=== PATIENT | male | born 1990 | race African-American/Black ===

== ENCOUNTER 2018-12-16 04:48 | Emergency (ER) | payer OTHER ==
[2018-12-16 05:32] VITALS: BP 116/55; PULSE 78; TEMP 98.4; BMI 67.0
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
[2018-12-16] MEDS ORDERED: METHOCARBAMOL 500 MG TABLET PO ONE (06:38)
[2018-12-16] MEDS ORDERED: IBUPROFEN 600 MG TABLET (FP) PO ONE ×3 (06:38→06:43)
[2018-12-16] MEDS ORDERED: METHOCARBAMOL 500 MG TABLET ONE (06:41)
== END 2018-12-16 06:51 | disposition home or self-care (01) ==
LOC: JER 04:48
DX: S13.4XXA Sprain of ligaments of cervical spine, initial encounter (principal); V53.6XXA Passenger in pick-up truck or van injured in collision with car, pick-up truck or van in traffic accident, initial encounter; Y92.414 Local residential or business street as the place of occurrence of the external cause; Y93.89 Activity, other specified; Y99.8 Other external cause status
CPT/HCPCS: 99281-25

== ENCOUNTER 2019-06-23 14:47 | Emergency (ER) | payer OTHER ==
[2019-06-23 15:09] VITALS: BMI 30.7
[2019-06-23] MEDS ORDERED: ONDANSETRON 4 MG/2 ML VIAL IVPUSH ONE ×2 (15:28→16:54)
[2019-06-23] MEDS ORDERED: SODIUM CHLORIDE 0.9% 500 ML INFUS.BAG IV ONE (15:28)
[2019-06-23] MEDS ORDERED: FAMOTIDINE 20 MG/50 ML IVPB 20 MG/50 ML MG IVPB ONE ×2 (15:28→15:37)
[2019-06-23] MEDS ORDERED: ONDANSETRON 4 MG/2 ML VIAL ONE ×2 (15:37→16:57)
[2019-06-23] MEDS ORDERED: KETOROLAC TROMETHAMINE 30 MG/1 ML VIAL IVPUSH ONE (15:40)
[2019-06-23] MEDS ORDERED: KETOROLAC TROMETHAMINE 30 MG/1 ML VIAL ONE (15:45)
[2019-06-23 15:59] LABS: BASO % 0.4 % (0-2.0); EOS % 0.4 % (0-4.5); HEMATOCRIT 51.4 % (35.4-49); HEMOGLOBIN 17.7 GM/dL (11.7-16.9); MCH 30.4 pg (25.7-33.7); MCHC 34.4 g/dl (32.0-35.9); MEAN CELL VOLUME 88.3 fl (80-96); MEAN PLT VOLUME 7.4 fl (7.5-11.1); MONO % 14.1 % (3.8-10.2); NEUT % 68.1 % (42.8-82.8); PLATELET COUNT 295 K/MM3 (134-434); RBC 5.82 M/mm3 (4.00-5.60); RDW 14.1 % (11.9-15.9); WHITE BLOOD COUNT 6.5 K/mm3 (4.0-10.0)
[2019-06-23 16:14] LABS: BILIRUBIN,TOTAL 0.3 mg/dL (0.2-1); BLOOD UREA NITROGEN 16.9 mg/dL (7-18); CREATININE 1.1 mg/dL (0.55-1.3); POTASSIUM 3.9 mmol/L (3.5-5.1); TOT PROT 8.9 g/dl (6.4-8.2)
[2019-06-23] MEDS ORDERED: METOCLOPRAMIDE HCL INJECTION 10 MG/2 ML VIAL IVPUSH ONE (17:40)
[2019-06-23] MEDS ORDERED: METOCLOPRAMIDE HCL INJECTION 10 MG/2 ML VIAL ONE (17:46)
[2019-06-23 18:42] VITALS: BP 139/71; PULSE 64; TEMP 98.5
[2019-06-23 19:22] LABS: URINE APPEARANCE CLEAR; URINE BILIRUBIN SMALL (NEGATIVE); URINE COLOR DK YELLOW; URINE GLUCOSE (UA) NEGATIVE (NEGATIVE); URINE KETONE 80 (NEGATIVE); URINE PROTEIN 100 (NEGATIVE)
[2019-06-23 19:23] LABS: URINE LEUK ESTERASE NEGATIVE (NEGATIVE); URINE NITRITE NEGATIVE (NEGATIVE)
== END 2019-06-23 19:52 | disposition home or self-care (01) ==
LOC: EDBD → JER 14:47
PROC: 3E033GC Introduction of Other Therapeutic Substance into Peripheral Vein, Percutaneous Approach (ICD-10-PCS; principal; 2019-06-23)
PROC: 3E0333Z Introduction of Anti-inflammatory into Peripheral Vein, Percutaneous Approach (ICD-10-PCS; 2019-06-23)
PROC: 3E033GC Introduction of Other Therapeutic Substance into Peripheral Vein, Percutaneous Approach (ICD-10-PCS; 2019-06-23)
PROC: 3E033GC Introduction of Other Therapeutic Substance into Peripheral Vein, Percutaneous Approach (ICD-10-PCS; 2019-06-23)
DX: K52.9 Noninfective gastroenteritis and colitis, unspecified (principal)
CPT/HCPCS: 36415; 80053; 81003; 85025; 99284-25

== ENCOUNTER 2020-07-28 11:38 | Emergency (ER) | payer OTHER ==
[2020-07-28 12:14] VITALS: BP 123/61; PULSE 97; TEMP 97.9; BMI 30.8
[2020-07-28] MEDS ORDERED: ONDANSETRON 4 MG/2 ML VIAL IVPUSH ONE (12:36)
[2020-07-28] MEDS ORDERED: SODIUM CHLORIDE 1,000 ML IV STA (12:36)
[2020-07-28] MEDS ORDERED: ONDANSETRON 4 MG/2 ML VIAL ONE (14:08)
[2020-07-28 14:41] LABS: BASO % 0.5 % (0-2.0); HEMATOCRIT 54.1 % (35.4-49); HEMOGLOBIN 18.5 GM/dL (11.7-16.9); LYMPH % 16.6 % (8-40); MCHC 34.2 g/dl (32.0-35.9); MEAN CELL VOLUME 87.8 fl (80-96); MEAN PLT VOLUME 7.3 fl (7.5-11.1); MONO % 14.7 % (3.8-10.2); NEUT % 68.2 % (42.8-82.8); PLATELET COUNT 295 K/MM3 (134-434); RBC 6.16 M/mm3 (4.00-5.60); WHITE BLOOD COUNT 7.7 K/mm3 (4.0-10.0)
[2020-07-28 15:00] LABS: CALCIUM 10.1 mg/dL (8.5-10.1)
[2020-07-28 15:01] LABS: ALBUMIN 4.3 g/dl (3.4-5.0); BLOOD UREA NITROGEN 19.4 mg/dL (7-18)
[2020-07-28 15:04] LABS: CREATININE 1.4 mg/dL (0.55-1.3)
[2020-07-28 15:06] LABS: BILIRUBIN,TOTAL 0.5 mg/dL (0.2-1); TOT PROT 9.4 g/dl (6.4-8.2)
== END 2020-07-28 17:48 | disposition home or self-care (01) ==
LOC: JER 11:38
PROC: 3E033GC Introduction of Other Therapeutic Substance into Peripheral Vein, Percutaneous Approach (ICD-10-PCS; principal; 2020-07-28)
PROC: 3E0337Z Introduction of Electrolytic and Water Balance Substance into Peripheral Vein, Percutaneous Approach (ICD-10-PCS; 2020-07-28)
DX: U07.1 COVID-19 (principal); Z11.52 Encounter for screening for COVID-19
CPT/HCPCS: 36415; 80053; 83690; 85025; 99284-25; C9803; U0003; U0005

== ENCOUNTER 2020-10-17 15:39 | Emergency (ER) | payer OTHER ==
[2020-10-17 15:52] VITALS: BMI 27.1
[2020-10-17 17:04] VITALS: BP 130/79; PULSE 112; TEMP 98.1
== END 2020-10-17 16:50 | disposition short-term general hospital (02) ==
LOC: JER 15:39
DX: S31.603A Unspecified open wound of abdominal wall, right lower quadrant with penetration into peritoneal cavity, initial encounter (principal)
CPT/HCPCS: 99285-25

== ENCOUNTER 2020-12-09 21:35 | Emergency (ER) | payer OTHER ==
[2020-12-09 22:19] VITALS: BP 105/70; PULSE 19; TEMP 98.3; BMI 31.5
[2020-12-10 00:26] LABS: BASO % 1.1 % (0-2.0); EOS % 2.4 % (0-4.5); HEMATOCRIT 44.4 % (35.4-49); LYMPH % 30.7 % (8-40); MCH 29.3 pg (25.7-33.7); MCHC 33.7 g/dl (32.0-35.9); MEAN PLT VOLUME 6.8 fl (7.5-11.1); MONO % 8.5 % (3.8-10.2); NEUT % 57.3 % (42.8-82.8); PLATELET COUNT 311 10^3/uL (134-434); RBC 5.11 M/mm3 (4.00-5.60); RDW 13.9 % (11.9-15.9); WHITE BLOOD COUNT 8.8 K/mm3 (4.0-10.0)
[2020-12-10 00:46] LABS: BLOOD UREA NITROGEN 14.4 mg/dL (7-18)
[2020-12-10 00:49] LABS: CREATININE 1.2 mg/dL (0.55-1.3)
[2020-12-10 00:51] LABS: BILIRUBIN,TOTAL 0.4 mg/dL (0.2-1)
[2020-12-10] MEDS ORDERED: KETOROLAC TROMETHAMINE 30 MG/1 ML VIAL IVPUSH ONE (01:42)
[2020-12-10] MEDS ORDERED: KETOROLAC TROMETHAMINE 30 MG/1 ML VIAL ONE (01:48)
== END 2020-12-10 02:20 | disposition home or self-care (01) ==
LOC: JER 21:35
PROC: 3E033GC Introduction of Other Therapeutic Substance into Peripheral Vein, Percutaneous Approach (ICD-10-PCS; principal; 2020-12-09)
DX: R10.31 Right lower quadrant pain (principal); V49.9XXA Car occupant (driver) (passenger) injured in unspecified traffic accident, initial encounter
CPT/HCPCS: 36415; 74177-TC; 80053; 85025; 99285-25

== ENCOUNTER 2021-04-05 19:55 | Emergency (ER) | payer OTHER ==
[2021-04-05 20:00] VITALS: BP 140/94; PULSE 78; TEMP 98; BMI 31.5
[2021-04-05] MEDS ORDERED: KETOROLAC TROMETHAMINE 15 MG/ML VIAL IM ONE (21:33)
[2021-04-05] MEDS ORDERED: ACETAMINOPHEN 500 MG TABLET (FP) PO ONE (21:33)
[2021-04-05] MEDS ORDERED: ACETAMINOPHEN 1000 MG/100 ML VIAL IVPB ONE (21:37)
[2021-04-05] MEDS ORDERED: KETOROLAC TROMETHAMINE 15 MG/ML VIAL IVPUSH ONE (21:37)
[2021-04-05] MEDS ORDERED: KETOROLAC TROMETHAMINE 30 MG/1 ML VIAL ONE (21:54)
[2021-04-05] MEDS ORDERED: ACETAMINOPHEN INJECTION 100 ML IVPB ONE (21:54)
[2021-04-05] MEDS ORDERED: morphine CARPU-JECT 2 MG/1 ML DISP.SYRIN IVPUSH ONE (22:01)
[2021-04-05] MEDS ORDERED: morphine SULFATE 4 MG/ML VIAL ONE (22:42)
== END 2021-04-05 23:56 | disposition home or self-care (01) ==
LOC: JER 19:55
PROC: 3E033GC Introduction of Other Therapeutic Substance into Peripheral Vein, Percutaneous Approach (ICD-10-PCS; principal; 2021-04-05)
DX: S49.92XA Unspecified injury of left shoulder and upper arm, initial encounter (principal); V49.40XA Driver injured in collision with unspecified motor vehicles in traffic accident, initial encounter
CPT/HCPCS: 70450-TC; 71046-TC-FY; 72125-TC; 73030-TC-LT-FY; 99285-25; J0131

== ENCOUNTER 2021-04-16 08:42 | Emergency (ER) | payer OTHER ==
[2021-04-16 08:46] VITALS: BP 119/88; PULSE 90; TEMP 97.9; BMI 32.3
[2021-04-16] MEDS ORDERED: ONDANSETRON 4 MG/2 ML VIAL ONE (09:30)
[2021-04-16] MEDS ORDERED: SODIUM CHLORIDE 1,000 ML IV STA (09:32)
[2021-04-16] MEDS ORDERED: ONDANSETRON 4 MG/2 ML VIAL IVPUSH ONE (09:32)
== END 2021-04-16 14:19 | disposition home or self-care (01) ==
LOC: JER 08:42 → JCOVINFU 08:42 → JER 14:19
PROC: 3E033GC Introduction of Other Therapeutic Substance into Peripheral Vein, Percutaneous Approach (ICD-10-PCS; principal; 2021-04-16)
DX: R11.2 Nausea with vomiting, unspecified (principal)
CPT/HCPCS: 99284-25; C9803; U0003; U0005

== ENCOUNTER 2021-04-23 00:34 | Emergency (ER) | payer OTHER ==
[2021-04-23 02:31] VITALS: BP 134/78; PULSE 95; TEMP 98.1; BMI 31.4
[2021-04-23 05:56] LABS: BASO % 1.8 % (0-2.0); EOS % 4.2 % (0-4.5); HEMATOCRIT 44.6 % (35.4-49); HEMOGLOBIN 14.4 GM/dL (11.7-16.9); LYMPH % 20.3 % (8-40); MCH 28.4 pg (25.7-33.7); MCHC 32.3 g/dl (32.0-35.9); MEAN PLT VOLUME 6.4 fl (7.5-11.1); MONO % 8.5 % (3.8-10.2); NEUT % 65.2 % (42.8-82.8); PLATELET COUNT 445 10^3/uL (134-434); RBC 5.07 M/mm3 (4.00-5.60); RDW 13.8 % (11.9-15.9); WHITE BLOOD COUNT 8.7 K/mm3 (4.0-10.0)
[2021-04-23 06:13] LABS: CALCIUM 9.2 mg/dL (8.5-10.1)
[2021-04-23 06:14] LABS: ALBUMIN 3.6 g/dl (3.4-5.0); BLOOD UREA NITROGEN 14.3 mg/dL (7-18)
[2021-04-23 06:17] LABS: CREATININE 1.2 mg/dL (0.55-1.3)
[2021-04-23 06:18] LABS: BILIRUBIN,TOTAL 0.2 mg/dL (0.2-1)
[2021-04-23 06:19] LABS: TOT PROT 7.3 g/dl (6.4-8.2)
== END 2021-04-23 09:09 | disposition home or self-care (01) ==
LOC: JER 00:34
DX: L03.211 Cellulitis of face (principal)
CPT/HCPCS: 36415; 70487-TC; 70491-TC; 80053; 85025; 99284-25; Q9967

== ENCOUNTER 2022-03-21 09:05 | Emergency (ER) | payer OTHER ==
[2022-03-21 09:09] VITALS: BMI 26.5
[2022-03-21] MEDS ORDERED: LACTATED RINGERS SOLUTION 1,000 ML/1,000 ML INFUS.BAG IV ONE (09:58)
[2022-03-21] MEDS ORDERED: ACETAMINOPHEN 1000 MG/100 ML BAG IVPB ONE (09:59)
[2022-03-21] MEDS ORDERED: ONDANSETRON 4 MG/2 ML VIAL IVPUSH ONE (09:59)
[2022-03-21] MEDS ORDERED: ACETAMINOPHEN INJECTION 100 ML IVPB ONE (10:20)
[2022-03-21] MEDS ORDERED: ONDANSETRON 4 MG/2 ML VIAL ONE (10:20)
[2022-03-21 10:42] LABS: BASO % 0.9 % (0-2.0); EOS % 2.8 % (0-4.5); HEMATOCRIT 52.2 % (35.4-49); HEMOGLOBIN 17.6 GM/dL (11.7-16.9); LYMPH % 17.5 % (8-40); MCH 29.6 pg (25.7-33.7); MCHC 33.8 g/dl (32.0-35.9); MEAN CELL VOLUME 87.4 fl (80-96); MEAN PLT VOLUME 6.8 fl (7.5-11.1); MONO % 9.8 % (3.8-10.2); PLATELET COUNT 394 10^3/uL (134-434); RBC 5.97 M/mm3 (4.00-5.60); RDW 13.7 % (11.9-15.9); WHITE BLOOD COUNT 9.6 K/mm3 (4.0-10.0)
[2022-03-21 11:45] LABS: EPI CELLS 26 /uL (0-25.1); HYALINE CASTS 5 /uL (0-3.1); URINE APPEARANCE CLEAR; URINE BACTERIA 6 /uL (0-1359); URINE BILIRUBIN NEGATIVE (NEGATIVE); URINE COLOR DK YELLOW; URINE GLUCOSE (UA) NEGATIVE (NEGATIVE); URINE KETONE TRACE (NEGATIVE); URINE LEUK ESTERASE NEGATIVE (NEGATIVE); URINE NITRITE NEGATIVE (NEGATIVE); URINE PROTEIN 2+ (NEGATIVE); URINE WBC 40 /uL (0-25.8)
[2022-03-21 12:04] LABS: URINE RBC 57.1 /uL (0-23.9)
[2022-03-21 12:23] LABS: CREATININE 1.3 mg/dL (0.55-1.3)
[2022-03-21 12:25] LABS: BILIRUBIN,TOTAL 0.9 mg/dL (0.2-1); TOT PROT 9.2 g/dl (6.4-8.2)
[2022-03-21 12:41] VITALS: BP 120/79; PULSE 80; RESP 17; TEMP 98.8
== END 2022-03-21 12:47 | disposition home or self-care (01) ==
LOC: JER 09:05
PROC: 3E0333Z Introduction of Anti-inflammatory into Peripheral Vein, Percutaneous Approach (ICD-10-PCS; principal; 2022-03-21)
PROC: 3E033GC Introduction of Other Therapeutic Substance into Peripheral Vein, Percutaneous Approach (ICD-10-PCS; 2022-03-21)
PROC: 3E0337Z Introduction of Electrolytic and Water Balance Substance into Peripheral Vein, Percutaneous Approach (ICD-10-PCS; 2022-03-21)
DX: J09.X2 Influenza due to identified novel influenza A virus with other respiratory manifestations (principal); R05.1 Acute cough; R11.2 Nausea with vomiting, unspecified; R19.7 Diarrhea, unspecified
CPT/HCPCS: 0241U-QW; 36415; 80053; 81003; 83690; 85025; 87086; 99284-25

== ENCOUNTER 2022-04-05 09:49 | Emergency (ER) | payer OTHER ==
[2022-04-05 10:24] VITALS: BP 102/56; PULSE 85; RESP 18; TEMP 97.6; BMI 33.0
== END 2022-04-05 11:48 | disposition home or self-care (01) ==
LOC: JERFT 09:49
DX: L72.0 Epidermal cyst (principal); M79.671 Pain in right foot
CPT/HCPCS: 73630-TC-RT-FY; 99283-25

== ENCOUNTER 2022-04-15 03:47 | Emergency (ER) | payer OTHER ==
[2022-04-15 04:43] VITALS: BP 107/73; PULSE 71; RESP 18; TEMP 98.3; BMI 33.0
[2022-04-15] MEDS ORDERED: SODIUM CHLORIDE 1,000 ML IV STA (06:13)
[2022-04-15] MEDS ORDERED: LACTATED RINGERS SOLUTION 1000 ML INFUS.BAG IV ONE (07:40)
[2022-04-15] MEDS ORDERED: FAMOTIDINE 20 MG/50 ML IVPB 20 MG/50 ML MG IVPB ONE ×2 (07:40→07:57)
[2022-04-15] MEDS ORDERED: MAG HYDROX/AL HYDROX/SIMETH 30 ML UNIT-DOSE CUP PO ONE (07:40)
[2022-04-15] MEDS ORDERED: ACETAMINOPHEN 1000 MG/100 ML BAG IVPB ONE (07:40)
[2022-04-15] MEDS ORDERED: ONDANSETRON 4 MG/2 ML VIAL IVPUSH ONE (07:40)
[2022-04-15] MEDS ORDERED: ACETAMINOPHEN INJECTION 100 ML IVPB ONE (07:56)
[2022-04-15] MEDS ORDERED: ONDANSETRON 4 MG/2 ML VIAL ONE (07:57)
[2022-04-15] MEDS ORDERED: MAG HYDROX/AL HYDROX/SIMETH 30 ML UNIT-DOSE CUP ONE (08:01)
[2022-04-15 08:59] LABS: BASO % 1.5 % (0-2.0); EOS % 3.3 % (0-4.5); HEMATOCRIT 49.9 % (35.4-49); HEMOGLOBIN 16.3 GM/dL (11.7-16.9); LYMPH % 17.7 % (8-40); MCH 29.1 pg (25.7-33.7); MCHC 32.7 g/dl (32.0-35.9); MEAN CELL VOLUME 88.9 fl (80-96); MEAN PLT VOLUME 7.1 fl (7.5-11.1); MONO % 9.9 % (3.8-10.2); NEUT % 67.6 % (42.8-82.8); PLATELET COUNT 381 10^3/uL (134-434); RBC 5.61 M/mm3 (4.00-5.60); RDW 14.7 % (11.9-15.9); WHITE BLOOD COUNT 9.1 K/mm3 (4.0-10.0)
[2022-04-15 09:25] LABS: ALBUMIN 3.7 g/dl (3.4-5.0); BLOOD UREA NITROGEN 15.7 mg/dL (7-18); CALCIUM 9.6 mg/dL (8.5-10.1)
[2022-04-15 09:29] LABS: BILIRUBIN,TOTAL 0.4 mg/dL (0.2-1); TOT PROT 8.2 g/dl (6.4-8.2)
== END 2022-04-15 10:16 | disposition home or self-care (01) ==
LOC: JER 03:47
PROC: 3E033GC Introduction of Other Therapeutic Substance into Peripheral Vein, Percutaneous Approach (ICD-10-PCS; principal; 2022-04-15)
DX: R11.2 Nausea with vomiting, unspecified (principal); R19.7 Diarrhea, unspecified
CPT/HCPCS: 0241U-QW; 36415; 80053; 83690; 85025; 93005; 93010; 99284-25

== ENCOUNTER 2022-12-05 19:00 | Emergency (ER) | payer OTHER ==
[2022-12-05 19:22] VITALS: BP 119/76; PULSE 77; RESP 16; TEMP 98.8; BMI 29.9
[2022-12-05] MEDS ORDERED: KETOROLAC TROMETHAMINE 30 MG/1 ML VIAL IM ONE (23:09)
[2022-12-05] MEDS ORDERED: KETOROLAC TROMETHAMINE 60 MG/2 ML VIAL ONE (23:14)
== END 2022-12-05 23:55 | disposition home or self-care (01) ==
LOC: JER 19:00 → JERFT 19:00
PROC: 3E0233Z Introduction of Anti-inflammatory into Muscle, Percutaneous Approach (ICD-10-PCS; principal; 2022-12-05)
DX: M79.671 Pain in right foot (principal); R22.41 Localized swelling, mass and lump, right lower limb
CPT/HCPCS: 73630-TC-RT-FY; 99284-25

== ENCOUNTER 2023-10-12 17:39 | Emergency (ER) | payer SELFPAY ==
[2023-10-12 17:44] VITALS: BP 116/65; PULSE 99; RESP 18; TEMP 98; BMI 30.1
== END 2023-10-12 18:53 | disposition home or self-care (01) ==
LOC: JER 17:39 → JERFT 17:39
PROC: 0H96XZZ Drainage of Back Skin, External Approach (ICD-10-PCS; principal; 2023-10-12)
DX: M85.571 Aneurysmal bone cyst, right ankle and foot (principal)
CPT/HCPCS: 89060; 99283-25

== ENCOUNTER 2024-02-27 14:18 | Emergency (ER) | payer OTHER ==
[2024-02-27 14:34] VITALS: BP 126/86; PULSE 64; RESP 18; TEMP 98.7; BMI 30.8
[2024-02-27] MEDS ORDERED: FAMOTIDINE 20 MG/50 ML IVPB 20 MG/50 ML MG IVPB ONE (14:56)
[2024-02-27] MEDS ORDERED: ACETAMINOPHEN 325 MG TABLET (FP) ONE (15:17)
[2024-02-27] MEDS ORDERED: ONDANSETRON 4 MG/2 ML VIAL ONE (15:17)
[2024-02-27 15:23] LABS: BASO % 0.3 % (0-2.0); EOS % 4.8 % (0-4.5); HEMATOCRIT 52.5 % (35.4-49); HEMOGLOBIN 17.7 GM/dL (11.7-16.9); LYMPH % 15.9 % (8-40); MCH 29.7 pg (25.7-33.7); MCHC 33.7 g/dl (32.0-35.9); MEAN CELL VOLUME 88.2 fl (80-96); MEAN PLT VOLUME 6.6 fl (7.5-11.1); MONO % 8.5 % (3.8-10.2); NEUT % 70.5 % (42.8-82.8); PLATELET COUNT 367 10^3/uL (134-434); RBC 5.95 M/mm3 (4.00-5.60); RDW 13.5 % (11.9-15.9); WHITE BLOOD COUNT 12.2 K/mm3 (4.0-10.0)
[2024-02-27] MEDS: ONDANSETRON 4 MG/2 ML VIAL IVPUSH ONE (15:29)
[2024-02-27] MEDS: ACETAMINOPHEN 500 MG TABLET (FP) PO ONE (15:30)
[2024-02-27 15:32] LABS: INR 1.14 (0.83-1.09); PROTHROMBIN TIME (PATIENT) 12.8 SEC (9.7-13.0)
[2024-02-27 15:35] LABS: ACTIVATED PTT 31.3 SECONDS (25.2-36.5)
[2024-02-27 15:42] LABS: POTASSIUM 3.4 mmol/L (3.5-5.1)
[2024-02-27 15:44] LABS: CALCIUM 9.9 mg/dL (8.5-10.1)
[2024-02-27 15:45] LABS: ALBUMIN 4.2 g/dl (3.4-5.0); BLOOD UREA NITROGEN 17.6 mg/dL (7-18); MAGNESIUM 2.2 mg/dL (1.8-2.4)
[2024-02-27 15:48] LABS: CREATININE 1.2 mg/dL (0.55-1.3)
[2024-02-27 15:49] LABS: BILIRUBIN,TOTAL 0.8 mg/dL (0.2-1); TOT PROT 9.1 g/dl (6.4-8.2)
[2024-02-27] MEDS ORDERED: MAG HYDROX/AL HYDROX/SIMETH 30 ML UNIT-DOSE CUP ONE (15:51)
[2024-02-27] MEDS: MAG HYDROX/AL HYDROX/SIMETH 30 ML UNIT-DOSE CUP PO ONE (15:55)
[2024-02-27] MEDS ORDERED: POTASSIUM CHLORIDE ORAL LIQUID 20 MEQ/15 ML ONE (16:24)
[2024-02-27] MEDS: POTASSIUM CHLORIDE ORAL LIQUID 20 MEQ/15 ML PO ONE (16:44)
[2024-02-27] MEDS: SODIUM CHLORIDE 0.9% 500 ML INFUS.BAG IV ONE (16:44)
== END 2024-02-27 19:12 | disposition home or self-care (01) ==
LOC: JER 14:18
PROC: 3E033GC Introduction of Other Therapeutic Substance into Peripheral Vein, Percutaneous Approach (ICD-10-PCS; principal; 2024-02-27)
DX: R10.13 Epigastric pain (principal); R11.2 Nausea with vomiting, unspecified; R19.7 Diarrhea, unspecified; E87.6 Hypokalemia; M79.10 Myalgia, unspecified site; R68.83 Chills (without fever); R51.9 Headache, unspecified; Z20.822 Contact with and (suspected) exposure to COVID-19
CPT/HCPCS: 0241U-QW; 36415; 74177-TC; 80053; 83690; 83735; 84100; 85025; 85610; 85730; 93005; 93010; 96374; 99285-25; Q9967

== ENCOUNTER 2024-11-22 12:37 | Emergency (ER) | payer OTHER ==
[2024-11-22 12:46] VITALS: BP 120/75; PULSE 72; RESP 20; TEMP 97.8; BMI 30.8
[2024-11-22] MEDS ORDERED: IBUPROFEN 600 MG TABLET (FP) PO ONE (13:20)
[2024-11-22] MEDS ORDERED: LIDOCAINE 4% PATCH TP ONE (13:30)
[2024-11-22] MEDS: IBUPROFEN 600 MG TABLET (FP) PO ONE (13:50)
[2024-11-22] MEDS: LIDOCAINE 5% TOPICAL PATCH TP ONE (13:50)
[2024-11-22] MEDS ORDERED: LIDOCAINE PATCH REMOVAL MC SCH (22:00)
== END 2024-11-22 14:54 | disposition home or self-care (01) ==
LOC: JERFT 12:37
DX: M25.561 Pain in right knee (principal); X50.1XXA Overexertion from prolonged static or awkward postures, initial encounter
CPT/HCPCS: 73562-TC-RT-FY; 99283-25